=== PATIENT | female | born 1975 | race Two or more races ===

== ENCOUNTER → 2024-10-16 | Outpatient (CLI) | payer BC ==
[2024-10-17 07:07] LABS: HSV 1 IgG Antibody Reactive (Non Reactive); HSV 2 IgG Antibody Reactive (Non Reactive)
== END | disposition home or self-care (01) ==
LOC: LAB 11:04
PROVIDERS: ATTEND Registered Nurse
DX: Z20.2 Contact with and (suspected) exposure to infections with a predominantly sexual mode of transmission (principal)
CPT/HCPCS: 36415; 86695; 86696; 86703; 86706; 86780; 87086

== ENCOUNTER 2024-12-26 06:23 | Outpatient (CLI) | payer BC ==
[2024-12-26 06:55] LABS: Hematocrit 38.5 % (36.0-46.0); Hemoglobin 13.5 g/dL (12.2-16.2); Mean Corpuscular Hemoglobin 33.3 pg (28.0-32.0); Mean Corpuscular Volume 94.8 fL (80.0-100.0); Nucleated Red Blood Cells % 0.1 %
[2024-12-26 07:13] LABS: Alanine Aminotransferase 10 U/L (7-40); Albumin 4.5 g/dL (3.2-4.8); Alkaline Phosphatase 74 U/L (46-116); Anion Gap 10 (5-15); BUN/Creatinine Ratio 13.2 (10.0-20.0); Blood Urea Nitrogen 14 mg/dL (9-23); Calcium 10.3 mg/dL (8.7-10.4); Carbon Dioxide 28 mmol/L (20-31); Chloride 104 mmol/L (98-107); Potassium 3.8 mmol/L (3.5-5.1); Sodium 142 mmol/L (136-145); Total Protein 7.2 g/dL (5.7-8.2); Triglycerides 100 mg/dL (< 150)
[2024-12-26 07:14] LABS: Bilirubin, Total 0.7 mg/dL (0.2-1.0); Cholesterol 221 mg/dL (< 200); Glucose 107 mg/dL (74-106); HDL Cholesterol 51 mg/dL (40-59)
== END 2024-12-26 17:00 | disposition home or self-care (01) ==
LOC: LAB 06:23
PROVIDERS: ATTEND Specialist
DX: L63.0 Alopecia (capitis) totalis (principal); Z12.11 Encounter for screening for malignant neoplasm of colon; Z13.220 Encounter for screening for lipoid disorders; Z13.1 Encounter for screening for diabetes mellitus; Z68.38 Body mass index [BMI] 38.0-38.9, adult
CPT/HCPCS: 36415; 80053; 80061; 85025

== ENCOUNTER 2025-01-02 12:57 | Outpatient (CLI) | payer BC | END 2025-01-02 17:00 | disposition home or self-care (01) | LOC: LAB 12:57 | PROVIDERS: ATTEND Specialist | DX: Z12.11 Encounter for screening for malignant neoplasm of colon (principal); L63.0 Alopecia (capitis) totalis; Z13.1 Encounter for screening for diabetes mellitus; Z68.39 Body mass index [BMI] 39.0-39.9, adult; Z13.220 Encounter for screening for lipoid disorders | CPT/HCPCS: 82270 ==